=== PATIENT | male | born 1950 | race Caucasian/White ===

== ENCOUNTER 2019-08-20 06:51 | Day surgery (SDC) | payer MEDICARE, OTHER, SELFPAY ==
[2019-08-20] MEDS: PROPARACAINE 0.5% OPHTH SOL 2 DROPS EYE-OP (07:51)
[2019-08-20] MEDS: CATARACT EYE COMPOUND (10 DROPS/SYRINGE) 3 DROPS EYE-OP (07:53)
[2019-08-20 07:54] VITALS: BP 157/74; PULSE 60; RESP 16; TEMP 36.3; O2SAT 97
[2019-08-20 08:03] VITALS: BMI 26.6
--- NOTE | 2019-08-20 08:41 | PM.PREOP ---
Pre-operative Note Interval Note History & Physical reviewed/Exam performed by Physician: No Changes to H&P: No
--- NOTE | 2019-08-20 08:41 | PM.OP.1 ---
Operative Date/Time/Diagnoses Pre-op diagnosis: Nuclear cataract right eye Procedure & Clinicians Procedure: Cataract Surgery Same procedure as scheduled: Yes Surgeon: Sang Bose Anesthesia Type: MAC +/- and Sedation Operative Notes Procedure in detail: Patient brought to the operating suite. Tetracaine drops placed in the right eye. Patient was prepped and draped in sterile manner. Wire lid speculum was placed in the eye. Betadine drops were placed on the eye. This was irrigated. Lidocaine jelly was placed on the eye. A paracentesis port was created with a side-port blade. 0.1 mL 1% preservative free lidocaine was injected into the anterior chamber. The anterior chamber was deepened with viscoelastic. 2.6 mm keratome was used to create a temporal clear corneal incision. Cystotome and Utrata forceps were used to create continuous tear capsulorrhexis. Balanced salt solution was used to hydro dissect the nucleus. The phacoemulsification handpiece was inserted and the nucleus was removed using the stop and chop technique. The irrigation aspiration handpiece was inserted and the remaining cortex was removed. Anterior chamber was deepened with viscoelastic. An Lane ZCB00 intraocular lens with a power of 17.5 was injected into the capsular bag. Irrigation aspiration handpiece was inserted and the remaining viscoelastic was removed. Incision was hydrated with balanced salt solution and found to be leak free with pressure with Weck-Camila sponges. 0.1 mL Vigamox injected anterior chamber. 0.3 mL Kenalog 10 mg was injected subconjunctivally. Lid speculum was removed. The patient left the operating room in excellent condition. Complications: none Post-operative Condition: stable Disposition: same day surgery
[2019-08-20] MEDS: CHONDROIDTIN/SOD HYALURONATE 1.05 ML SYRINGE INTRAOCULA (09:01)
[2019-08-20] MEDS: LIDOCAINE JELLY 2% 5 ML 1 APPLIC TOP (09:01)
[2019-08-20] MEDS: MOXIFLOXACIN INJ 5 MG/ML VIAL EYE-OP (09:02)
[2019-08-20] MEDS: PHENYLEPHRINE/LIDOCAINE VIAL (OR) 0.2 ML EYE-OP (09:02)
[2019-08-20] MEDS: TETRACAINE 0.5% OPHTH DROPS 4 ML 2 DROPS EYE-OP (09:02)
[2019-08-20] MEDS: BALANCED SALT IRRIG SOLN NO.2 500 ML, EPINEPHrine 1 MG IRR (09:03)
[2019-08-20] MEDS: TRIAMCINOLONE 50 MG/5 ML VIAL INJ (09:03)
[2019-08-20 09:15] VITALS: BP 136/74; PULSE 68; RESP 15; TEMP 36.7; O2SAT 97
== END 2019-08-20 09:23 | disposition home or self-care (01) ==
LOC: OR 06:56
PROVIDERS: PCP Internal Medicine; Visit Provider Ophthalmology
PROC: (CPT 66984; principal; 2019-08-20 08:45)
DX: H25.11 Age-related nuclear cataract, right eye (principal); I10 Essential (primary) hypertension; E11.9 Type 2 diabetes mellitus without complications; Z79.84 Long term (current) use of oral hypoglycemic drugs
CPT/HCPCS: 66984; J0171; J2250; J3010; J3301

== ENCOUNTER 2019-09-03 06:50 | Day surgery (SDC) | payer MEDICARE, OTHER, SELFPAY ==
[2019-09-03 07:36] VITALS: BP 145/77; PULSE 61; RESP 16; TEMP 36.6; O2SAT 97; BMI 26.7
[2019-09-03] MEDS: PROPARACAINE 0.5% OPHTH SOL 2 DROPS EYE-OP (07:50)
[2019-09-03] MEDS: CATARACT EYE COMPOUND (10 DROPS/SYRINGE) 3 DROPS EYE-OP (07:52)
--- NOTE | 2019-09-03 08:11 | PM.PREOP ---
Pre-operative Note Interval Note History & Physical reviewed/Exam performed by Physician: No Changes to H&P: No
--- NOTE | 2019-09-03 08:12 | PM.OP.1 ---
Operative Date/Time/Diagnoses Pre-op diagnosis: Nuclear Cataract Left eye Post-op diagnosis: same Procedure & Clinicians Surgeon: Sang Bose Anesthesia Type: MAC +/- and Sedation Operative Notes Procedure in detail: Patient brought to the operating suite. Tetracaine drops placed in the left eye. Patient was prepped and draped in sterile manner. Wire lid speculum was placed in the eye. Betadine drops were placed on the eye. This was irrigated. Lidocaine jelly was placed on the eye. A paracentesis port was created with a side-port blade. 0.1 mL 1% preservative free lidocaine was injected into the anterior chamber. The anterior chamber was deepened with viscoelastic. 2.6 mm keratome was used to create a temporal clear corneal incision. Cystotome and Utrata forceps were used to create continuous tear capsulorrhexis. Balanced salt solution was used to hydro dissect the nucleus. The phacoemulsification handpiece was inserted and the nucleus was removed using the stop and chop technique. The irrigation aspiration handpiece was inserted and the remaining cortex was removed. Anterior chamber was deepened with viscoelastic. An Lane ZCB00 intraocular lens with a power of 18.5 was injected into the capsular bag. Irrigation aspiration handpiece was inserted and the remaining viscoelastic was removed. Incision was hydrated with balanced salt solution and found to be leak free with pressure with Weck-Camila sponges. 0.1 mL Vigamox injected anterior chamber. 0.3 mL Kenalog 10 mg was injected subconjunctivally. Lid speculum was removed. The patient left the operating room in excellent condition. Complications: none Post-operative Condition: stable Disposition: same day surgery
[2019-09-03] MEDS: PHENYLEPHRINE/LIDOCAINE VIAL (OR) 0.2 ML EYE-OP (08:23)
[2019-09-03] MEDS: MOXIFLOXACIN INJ 5 MG/ML VIAL EYE-OP (08:23)
[2019-09-03] MEDS: TETRACAINE 0.5% OPHTH DROPS 4 ML 2 DROPS EYE-OP (08:24)
[2019-09-03] MEDS: TRIAMCINOLONE 50 MG/5 ML VIAL INJ (08:24)
[2019-09-03] MEDS: CHONDROIDTIN/SOD HYALURONATE 1.05 ML SYRINGE INTRAOCULA (08:24)
[2019-09-03] MEDS: LIDOCAINE JELLY 2% 5 ML 1 APPLIC TOP (08:25)
[2019-09-03] MEDS: BALANCED SALT IRRIG SOLN NO.2 500 ML, EPINEPHrine 1 MG IRR (08:25)
[2019-09-03 08:40] VITALS: BP 133/80; PULSE 63; RESP 15; TEMP 36.2; O2SAT 96
== END 2019-09-03 09:08 | disposition home or self-care (01) ==
LOC: OR 06:53
PROVIDERS: PCP Internal Medicine; Visit Provider Ophthalmology
PROC: (CPT 66984; principal; 2019-09-03 08:15)
DX: H25.12 Age-related nuclear cataract, left eye (principal); I10 Essential (primary) hypertension; E11.9 Type 2 diabetes mellitus without complications; Z79.84 Long term (current) use of oral hypoglycemic drugs
CPT/HCPCS: 66984; J0171; J2250; J3010; J3301

== ENCOUNTER → 2019-12-03 12:39 | Outpatient (CLI) | payer MEDICARE, OTHER, SELFPAY ==
--- NOTE | 2019-12-03 | DI.MRI.S_ITS ---
PROCEDURE: MR LUMBAR SPINE WO CON INDICATIONS: Low back pain TECHNIQUE: Noncontrast sagittal T1 spin echo and T2 fast echo, sagittal STIR, axial T1 and T2 fast spin echo through the lumbar spine. In cases with scoliosis, additional coronal T2 fast spin echo may be performed. COMPARISON: None. FINDINGS: Image quality: Excellent. Alignment and Curvature: There is grade I L5-S1 anterolisthesis secondary to bilateral L5 pars interarticularis defects. Bone Marrow: Reactive endplate changes noted adjacent the L5-S1 discs. No acute vertebral body compression fractures. Spinal Cord: Conus medullaris terminates at the L1 level. Visualized cord demonstrates normal signal and size. Paraspinous Soft Tissues: No paravertebral masses. L1-L2: Normal appearance. L2-L3: Normal appearance. L3-L4: Normal appearance. L4-L5: Normal appearance. L5-S1: Loss of disc signal and height. Mild, diffuse disc bulge. Mild bilateral facet hypertrophy. No central stenosis. Severe bilateral neural foraminal narrowing with compression of the exiting bilateral L5 nerve roots. IMPRESSION: 1. Grade I L5-S1 isthmic spondylolisthesis. 2. L5-S1 degenerative disc disease. 3. L5-S1 facet arthropathy. 4. No central stenosis. 5. Bilateral L5-S1 severe neural foraminal narrowing with marked compression of the exiting L5 nerve roots. Dictated by: Gretchen Beckham MD, PhD on 12/03/2019 at 14:46 Approved by: Gretchen Beckham MD, PhD on 12/03/2019 at 15:00
== END ==
PROVIDERS: PCP Internal Medicine; Referring Provider Physical Medicine & Rehabilitation; Visit Provider Physical Medicine & Rehabilitation
DX: M54.5 Low back pain (principal); M47.817 Spondylosis without myelopathy or radiculopathy, lumbosacral region; M43.17 Spondylolisthesis, lumbosacral region; M51.37 Other intervertebral disc degeneration, lumbosacral region; M48.07 Spinal stenosis, lumbosacral region
CPT/HCPCS: 72148

== ENCOUNTER → 2020-05-24 11:35 | Outpatient (CLI) | payer MEDICARE, OTHER, SELFPAY ==
[2020-05-25 22:04] LABS: COVID19 Sendout Not Detected (Not Detect)
== END ==
PROVIDERS: PCP Internal Medicine; Visit Provider Physician Assistant
DX: Z11.59 Encounter for screening for other viral diseases (principal)
CPT/HCPCS: 87635

== ENCOUNTER 2020-05-27 11:09 | Day surgery (SDC) | payer MEDICARE, OTHER, SELFPAY ==
[2020-05-18 14:00] VITALS: BMI 28.0
[2020-05-27] VITALS (12 sets, daily range): BP systolic 134–153; BP diastolic 72–80; PULSE 62–80; RESP 10–18; TEMP 35.6–36.9; O2SAT 95–100; BMI 24.5
--- NOTE | 2020-05-27 | DI.RAD.S_ITS ---
PROCEDURE: XR LUMBAR SPINE 2-3V INDICATIONS: L5-S1 TLIF TECHNIQUE: AP and lateral operative views of the lumbar spine were acquired. COMPARISON: None. FINDINGS: AP and lateral fluoroscopic images demonstrate posterolateral berna and pedicle screw fixation and interbody prosthesis at L5-S1. IMPRESSION: Operative imaging utilized during lumbar fusion surgery. Dictated by: Nolan Otoole M.D. on 05/27/2020 at 15:21 Approved by: Nolan Otoole M.D. on 05/27/2020 at 15:23
[2020-05-27] MEDS: LACTATED RINGERS 1,000 ML 42 ML IV ×2 (11:52→13:43)
--- NOTE | 2020-05-27 11:57 | PM.PREOP ---
Pre-operative Note COVID-19 COVID-19 status: Negative Result date/Date tested (Pos, Neg/Pending): 05/25/20 Interval Note History & Physical reviewed/Exam performed by Physician: Yes Changes to H&P: No
[2020-05-27] MEDS: CLINDAMYCIN 900 MG/50 ML PIGGYBACK 50 MG IV ×2 (12:27→21:35)
--- NOTE | 2020-05-27 13:05 | SUR.OPER ---
Prone on spine table, head in foam head support, padded chest and pelvic supports, gel pad at knees, lower legs supported by pillows; nipples, genitalia and toes free of pressure, arms secured on foam padded arm boards at <90 degrees abduction. Tape over blanket at thigh secured to table.
[2020-05-27] MEDS: BUPIVACAINE 0.25% W/ EPI 30 ML VIAL INJ (13:31)
[2020-05-27] MEDS: BUPIVACAINE LIPOSOME 266 MG/20 ML VIAL INJ (13:32)
--- NOTE | 2020-05-27 14:50 | PM.OP.1 ---
Operative Date/Time/Diagnoses Date of procedure: 05/27/20 Time of procedure: 12:50 Pre-op diagnosis: 1. L5-S1 spondylolisthesis 2. L5-S1 spinal stenosis with radiculopathy Post-op diagnosis: same Procedure & Clinicians Procedure: 1. L5-S1 Postero-lateral and posterior interbody fusion 2. L5-S1 interbody cage placement. 3. L5-S1 decompressive laminectomy with bilateral facetecomies 4. L5-S1 Posterior non-segmental instrumentation 5. [place] of bone marrow from iliac crest 6. Utilization of microsurgical technique and operating microscope Same procedure as scheduled: Yes Indications: Patient has been having chronic back pain and worsening lumbar radiculopathy. Patient failed multiple conservative management with worsening pain weakness and numbness in her lower extremity. Patient has been having difficulty performing activity of daily living. After discussing risks benefits of treatment options, patient elected proceed with surgery. Surgeon: Paul Gonzalez [facility] House Supervisor: Tatiana Nava Click Yes if Unassisted: No Anesthesia Type: General Operative Notes Closure Type: primary Specimen(s): none sent Prosthetic devices, grafts, tissues, transplants, or devices: Globus revolve screws, Expandibe cage Estimated Blood Loss (mL): 50 Procedure in detail: Patient was seen in the preoperative area. Risks and benefits of the surgery was discussed with the patient. Informed consent was obtained from the patient and placed in the chart. Surgical site was marked. Patient was taken to the operative room. General anesthesia was administered. Prophylactic antibiotic was given to the patient less than 30 min before the incision was made. Patient was placed into a prone position on the Lan table. Patient's back was then prepped and draped in the sterile fashion. Time-out was performed at this time. Using AP and lateral C-arm imaging the interval between L5-S1 was identified and marked on patient's back. A 2 inch incision 2 in from midline was made on the left side first. The fascia was incised in line with skin incision. Globus MARS retractors was placed inside the incision and docked onto the L5 lamina. Using microsurgical technique and operating microscope, a L5 laminectomy and L5-S1 facetectomy was performed using a [place] rongeur. Patient was found have severe central and neural foramen stenosis which was fully decompressed after the laminectomy and facetectomy was completed. The disc space at L5-S1 was identified. And a total diskectomy was performed at L5-S1 level. The endplates were decorticated using a rasp and shaver. The total diskectomy and decortication was performed at L5-S1 level in order to to accomplish a L5-S1 fusion. The local bone from the laminectomy and facetectomy was saved for local bone grafting. After the total diskectomy and decortication was completed, Trifecta bone graft material was combined with local bone that was harvested earlier. At this time, a separate skin is incision was made over the iliac crest. A Jamshidi needle was inserted into the iliac crest through a separate skin incision. 5 cc of bone marrow aspiration was obtained through the separate skin incision using a Jamshidi needle from the iliac crest. The bone marrow aspiration was combined with local bone and the Trifecta bone grafting material. The bone grafting material was placed into the L5-S1 interbody space along with a expandable cage. The cage was expanded to its maximum height using the torque limiting screwdriver. At this time a mirror image incision was made on the right side. The fascia was incised in line with the skin incision. Globus MARS retractor was inserted and docked onto the L5-S1 posterolateral gutter. Using the power drill, posterior-lateral decortication was performed at L5-S1 level until bleeding cortical bone was identified. The remaining bone grafting material was placed into the L5-S1 posterior lateral gutter he order to accomplish posterolateral fusion at the L5-S1 level. Using the double C-arm technique, pedicle screws were placed into the L5-S1 pedicles bilaterally. This was done by placing the Jamshidi needle into the pedicles, then placing the guidewires over the Jamshidi needle, and finally placing the cannulated screws over the guidewires bilaterally. After the pedicle screws were placed, 2 titanium rods was locked into the heads of the pedicle screws using locking caps and torque limiting screwdriver. Threaded the reducers was used to used to reduce patient's spondylolisthesis at L5-S1 level. Anatomic reduction was accomplished using the supervisor powder and primer canning and the hardware placed. After all the hardware was placed, and confirmed with AP and lateral C-arm imaging, the wound was then irrigated with sterile normal saline and packed with Ray-Wes gauze for 3 min to accomplish hemostasis. After the gauze was removed the deep fascia was closed with #1 Vicryl suture. The subcutaneous layer was closed with 2-0 Vicryl. The skin was closed with skin lizeth. Patient tolerated the procedure well. There were no complications. Complications: none Post-operative Condition: stable Disposition: PACU Plan for aftercare: Admit to inpatient hospital
[2020-05-27] MEDS: SODIUM CHLORIDE 0.9% 1,000 ML 100 ML IV (16:06)
--- NOTE | 2020-05-27 17:23 | PC.NURSE ---
Patient arrived to floor at 1535, A&O x4, patient denies any pain at this time, no numbness or tingling in upper or lower ext. Patient's fluids were changed per orders and IV site was re-inforced with a new tegaderm and coban. Pt is resting peacfully in bed, call light w/in reach, bed in low pos.
[2020-05-27] MEDS: OXYCODONE IR 5 MG TABLET 10 MG PO (17:54)
--- NOTE | 2020-05-27 18:56 | PC.NURSE ---
1800 - I was called to Rm [id number], to speak with the patient's , who was very upset that the surgeon did not speak with her following the patient's surgery, and that no hospital staff notified her of the patient's arrive to his room at 1535. The surgeon was contacted by phone and the call was transferred to the the patient's room. Following this phone conversation, the patient and his reported that all of their questions and concerns had been addressed.
[2020-05-27] MEDS: ATORVASTATIN 20 MG TABLET 40 MG PO (21:35)
[2020-05-27] MEDS: SENNOSIDES 8.6 MG TABLET 17.2 MG PO (21:35)
[2020-05-27] MEDS: DOCUSATE 100 MG CAPSULE PO (21:35)
[2020-05-27] MEDS: METFORMIN HCL 500 MG TABLET 1000 MG PO (21:35)
[2020-05-27] MEDS: glipiZIDE 5 MG TABLET 10 MG PO (21:36)
[2020-05-27] MEDS: ENALAPRIL 20 MG TABLET PO (22:33)
[2020-05-27] MEDS: PROPRANOLOL ER 60 MG CAPSULE 120 MG PO (22:59)
[2020-05-28] VITALS: BP 126/74; BP 150/79; PULSE 90; RESP 16; TEMP 38.1; O2SAT 97
[2020-05-28] MEDS: ACETAMINOPHEN 325 MG TABLET 650 MG PO ×2 (00:09→09:08)
[2020-05-28] MEDS: OXYCODONE IR 5 MG TABLET 10 MG PO ×2 (00:09→09:07)
[2020-05-28 00:30] VITALS: TEMP 37.4
[2020-05-28 01:15] VITALS: BP 126/74; PULSE 90; RESP 16; TEMP 37.4; O2SAT 90
[2020-05-28] MEDS: CLINDAMYCIN 900 MG/50 ML PIGGYBACK 50 MG IV (05:31)
[2020-05-28 05:48] VITALS: BP 139/65; PULSE 84; RESP 16; TEMP 36.7; O2SAT 98
[2020-05-28 07:45] VITALS: BP 136/69; PULSE 86; RESP 16; TEMP 37.8; O2SAT 96
--- NOTE | 2020-05-28 08:52 | PM.PN.1 ---
Exam Vital Signs (past 8 hours): - 05/28/20 01:15 05/28/20 05:48 Temperature 99.3 F 98.0 F Pulse Rate 90 84 Respiratory Rate 16 16 Blood Pressure 126/74 139/65 Pulse Oximetry 90 L 98 Oxygen Delivery Method Room Air Oxygen Flow Rate 1 Assessment & Plan Assessment & Plan narrative: POD#1 s/p L5-S1 TLIF. Doing well. AMbulated to bathroom multiple times. Neurovasculary intact. Will d/c home today after clear PT/OT.
[2020-05-28] MEDS: METFORMIN HCL 500 MG TABLET 1000 MG PO (09:07)
[2020-05-28] MEDS: AMLODIPINE 5 MG TABLET PO (09:07)
[2020-05-28] MEDS: glipiZIDE 5 MG TABLET PO (09:07)
[2020-05-28] MEDS: DOCUSATE 100 MG CAPSULE PO (09:07)
[2020-05-28] MEDS: valACYclovir 500 MG TABLET PO (09:08)
[2020-05-28] MEDS: PROPRANOLOL ER 60 MG CAPSULE 120 MG PO (09:09)
--- NOTE | 2020-05-28 10:38 | PT.IIE ---
Current Diagnoses Spondylolisthesis, lumbosacral region (05/27/20) Spinal stenosis, lumbar region without neurogenic claudication (05/27/20) Surgery Performed Operation Date: 05/27/20 12:45 Actual Procedures p L5-S1 TRANSLAMINAR INTERBODY FUSION WITH POSTERIOR INSTRUMENTATION - Paul Gonzalez MD Surgical History (Last Updated 05/18/20 @ 14:20 by Isabela Bailey RN) History of straightening of nasal septum (Acute) History of vasectomy (Acute) Medical History (Last Updated 05/18/20 @ 14:20 by Isabela Bailey RN) Diabetes (Acute) Dupuytren's disease (Acute) Heartburn (Acute) HLD (hyperlipidemia) (Acute) Hypertension (Acute) Kidney stone (Acute) Melanoma (Acute 02/2019) Sinus congestion (Acute) Tremor (Acute) Physical Therapy Inpatient Evaluation/Re-Eval M1 PT/OT-IP Prior Functional Status Start: 05/28/20 14:05 Freq: NEEDED Status: Active Protocol: Document 05/28/20 11:33 [facility] (Rec: 05/28/20 14:18 [facility] [id number]) Medical Review Prior Functional Status Medical History Reviewed Yes Communication Independent. Activities of Daily Living and IADL's Pt states was independent to do all his ADl and IADl needs on his own. Drives and took the dog for walks. Social History Household Members spouse Living Arrangements RV Number of Floors (Floors) One Floor Number of Stairs To Enter/Railing? 5 steps with bilateral rails. Home Environment Standard Height Toilet,Walk in Shower,Built-In Shower Seat Home Equipment Hand Held Shower,Long Handled Sponge M1 PT/OT-IP Prior Functional Status Start: 05/28/20 14:58 Freq: NEEDED Status: Active Protocol: Document 05/28/20 10:38 [facility] (Rec: 05/28/20 15:11 [facility] [email or web address]) Medical Review Prior Functional Status Medical History Reviewed Yes Communication able to make needs known Mobility and Gait pt stated that he is independent with all mobilities and ambulation without AD Activities of Daily Living and IADL's per OT's note: Pt states was independent to do all his ADl and IADl needs on his own. Drives and took the dog for walks. Social History Household Members spouse Living Arrangements Mobile home Number of Floors (Floors) One Floor Number of Stairs To Enter/Railing? 5 steps with bilateral rails. Home Environment Standard Height Toilet,Walk in Shower,Built-In Shower Seat Home Equipment Hand Held Shower,Long Handled Sponge,Grab Bars In Shower Employment Status Retired M2 PT-IP Current Condition Start: 05/28/20 14:58 Freq: NEEDED Status: Active Protocol: Document 05/28/20 10:38 [facility] (Rec: 05/28/20 15:11 [facility] [email or web address]) Physical Therapy Current Condition Current Condition Evaluation Date 05/28/20 Treatment Diagnosis s/p L5S1 posterior fusion/lami ; difficulty in walking Onset Date 05/27/20 Precautions Lumbar Precautions Log Roll,No Twisting,Limit Bending,Lifting Restriction of 10 lbs,Gait Belt above Incisional Area M3 PT-IP Subjective Start: 05/28/20 14:58 Freq: NEEDED Status: Active Protocol: Document 05/28/20 10:38 [facility] (Rec: 05/28/20 15:11 AB [email or web address]) Subjective Physical Therapy Visit Type Type Initial Evaluation Visit Start Time 10:38 Visit Stop Time 11:40 Total Visit Minutes 62 Number of TRAVEL CONSULTANT Visits 0 Physical Therapy Visit Comments Patient Comments agreed to do PT Therapy Pain Assessment Pain When Pain Assessed At Rest Pain Present Pain Present Pain Reported Location lumbar back Intensity 2 Scale Used Numeric (0 - 10) Pain Management Techniques Modification of Treatment,Re- positioning,Timing of Activity with Medications M4 PT-IP Mobility and Gait Start: 05/28/20 14:58 Freq: NEEDED Status: Active Protocol: Document 05/28/20 10:38 [facility] (Rec: 05/28/20 15:11 AB [email or web address]) PT-Bed Mobility Assessment Rolling Type of Rolling Log Rolling Level of Assist Standby Assistance Supine to Sit Supine to Sit Standby Assistance Sit to Supine Sit to Supine Standby Assistance Scooting Scooting to Edge of Bed Independent PT-Transfer Assessment Sit to and From Stand Sit to and from Stand Standby Assistance,1 Person Assistance,Use of Upper Extremities Equipment Transfer Assistive Device Gait Belt,Straight Cane,Front Wheeled Walker Orthotic/Prosthetic Devices or Brace: No Transfers Transfer Destination Chair Transfer Technique ambulated Transfer Ability Level of Assist Standby Assistance,1 Person Assistance,Use of Upper Extremities Comments Mobility Comments reviewed back precautions and log roll supine <>sit. completed supine <> sit SBA x 2 reps with cues initially and able to complete without cues on 2nd attempt. completed sit to stand x 3 reps with initial CGA and cues and able to complete SBA without cues afterwards. ambulated using FWW SBA to CGA. increase R trunk leaning during ambulation. instructed pt to correct and was able to ambulate steadier afterwards. assessed ambulation using SPC . pt instructed on how to use SPC and completed SBA to CGA. requires inital cues for safety. pt prefers using a SPC. stated that they will get one for home use. ambulated without AD CGA and cues. pt with antalgic gait and informed pt regarding safety. stated that his house is small and has things he hold on to at home. recommending pt to use AD for long distance ambulation. pt agreed. pt ambulated in hallway using SPC with initial LOB towards the R but able to recover. cued pt again on correcting and was able to ambulate more ~ 200 ft without LOB and steadier gait using SPC afterwards. pt completed up/down steps using SPC and 1 rail SBA. pt ambulated back to his room. agreed to sit up on chair. informed OT that pt is waiting to be d/c and will be doing dressing. left pt sitting. call light and table within reach. pt has no other concerns. Gait Assessment Gait Gait Assistance Required: Standby Assistance,Contact Guard Assist Distance (Feet) 300 Able to Maintain Weight Bearing Status Yes During Gait Assistive Devices Assistive Device None,Gait Belt,Straight Cane, Front Wheeled Walker Orthotic/Prosthetic Devices or Brace: No Gait Deviations General Gait Pattern Antalgic Factors Limiting Gait Function Factors Limiting Gait Function Decreased Activity Tolerance, Decreased Strength,Pain,Poor Balance Comments Gait Comments pls refer to mobility section for details Stair Climbing Assessment Evaluation Level of Assist On Stairs Standby Assistance Devices Stair Climbing Assistive Devices Straight Cane,Left Railing Technique/Endurance Stair Climbing Direction Ascend and Descend Stair Climbing Technique Step to Step Number of Steps Climbed 3 Query Text: Stair Climbing Set # Repetitions (reps) 2 PT-Balance Assessment Sitting Balance and Reactions Static Sitting Balance Ability Normal Dynamic Sitting Balance Ability Normal Standing Balance and Reactions Static Standing Balance Ability Good Dynamic Standing Balance Ability Fair Device Used without AD M5 PT-IP Objective Assessments Start: 05/28/20 14:58 Freq: NEEDED Status: Active Protocol: Document 05/28/20 10:38 [facility] (Rec: 05/28/20 15:11 AB [email or web address]) Orientation Orientation/Cognition Level of Alertness Alert Orientation Name,Age,Birthday,Month,Date, Year,Day of Week,Place, Situation Language Function Ability No Deficits Noted Safety Awareness Understands Safety Issues Memory Description No Deficits Noted Gross Range of Motion Lower Extremity ROM Assessment Within Functional Limits Strength Lower Extremity Strength Assessment Bilaterally Impaired Hip 4-/5 Knee 4-/5 Coordination Assessment Gross Coordination Gross Coordination WNL Sensation Assessment Sensation Gross Sensation WNL Muscle Tone Muscle Tone WNL Yes M6 PT-IP Treatment Start: 05/28/20 14:58 Freq: NEEDED Status: Active Protocol: Document 05/28/20 10:38 [facility] (Rec: 05/28/20 15:11 AB [email or web address]) Physical Therapy Treatment Education Education Provided Precautions,Post-Op Packet, Safety M7 PT-IP Assessment and Plan Start: 05/28/20 14:58 Freq: NEEDED Status: Active Protocol: Document 05/28/20 10:38 [facility] (Rec: 05/28/20 15:11 AB [email or web address]) PT Summary Assessment and Plan Potential Rehabilitation Potential Good Status of Condition at Evaluation Stable Summary Impairments Pain,ROM,Strength,Balance,Bed Mobility,Transfers,Gait, Activity Tolerance Progress Towards Goals Safe For Discharge Assessment Summary pt requiring SBA to CGA with mobility. recommending use of SPC and pt stated that he will get one. pt plans to go home and spouse to assist him. Goals Bed Mobility Goal Independent Transfer Goal Independent,Cane Gait Goal Independent,Cane Gait Distance 300 Other Goals improve ambulation without AD 300 ft SBA up/down 5 steps using 1 rail/ SPC SBA Days to Meet Goals 3 Frequency of Treatment Frequency Of Treatment Twice a Day Treatment Plan Physical Therapy Treatment Plan Bed Mobility Training,Transfer Training,Gait Training, Therapeutic Exercise,Balance Retraining,Post Op Education, Discharge Planning,Hot or Cold Pack,Neuromuscular Re-ed, Coordination Retraining,Manual Therapy Recommendations To Nursing Amount of Assist Needed Standby Assistance Discharge Recommendations PT Discharge Recommendations Home with Assistance Transportation Needs at Discharge Private Vehicle
--- NOTE | 2020-05-28 12:06 | OT.IP.EVAL ---
Current Diagnoses Spondylolisthesis, lumbosacral region (05/27/20) Spinal stenosis, lumbar region without neurogenic claudication (05/27/20) Surgery Performed Operation Date: 05/27/20 12:45 Actual Procedures p L5-S1 TRANSLAMINAR INTERBODY FUSION WITH POSTERIOR INSTRUMENTATION - Paul Gonzalez MD Past Medical History (Last Updated 05/18/20 @ 14:20 by Isabela Bailey, RN) Diabetes (Acute) Dupuytren's disease (Acute) Heartburn (Acute) HLD (hyperlipidemia) (Acute) Hypertension (Acute) Kidney stone (Acute) Melanoma (Acute 02/2019) Sinus congestion (Acute) Tremor (Acute) Surgical History (Last Updated 05/18/20 @ 14:20 by Isabela Bailey RN) History of straightening of nasal septum (Acute) History of vasectomy (Acute) Occupational Therapy Inpatient Evaluation/Re-Eval M1 PT/OT-IP Prior Functional Status Start: 05/28/20 14:05 Freq: NEEDED Status: Active Protocol: Document 05/28/20 11:33 [facility] (Rec: 05/28/20 14:18 [facility] [id number]) Medical Review Prior Functional Status Medical History Reviewed Yes Communication Independent. Activities of Daily Living and IADL's Pt states was independent to do all his ADl and IADl needs on his own. Drives and took the dog for walks. Social History Household Members spouse Living Arrangements RV Number of Floors (Floors) One Floor Number of Stairs To Enter/Railing? 5 steps with bilateral rails. Home Environment Standard Height Toilet,Walk in Shower,Built-In Shower Seat Home Equipment Hand Held Shower,Long Handled Sponge M2 OT-IP Current Condition Start: 05/28/20 14:05 Freq: Status: Active Protocol: Document 05/28/20 11:33 [facility] (Rec: 05/28/20 14:18 [facility] [id number]) Occupational Therapy Current Condition Current Condition Evaluation Date 05/28/20 Treatment Diagnosis Spinal stenosis with radiculopathy , s/p L5-S1 TLIF Post Operative Precautions Lumbar Precautions Log Roll,No Twisting,Limit Bending,Lifting Restriction of 10 lbs,Gait Belt above Incisional Area M3 OT- IP Subjective and Pain Start: 05/28/20 14:05 Freq: Status: Active Protocol: Document 05/28/20 11:33 [facility] (Rec: 05/28/20 14:18 [facility] [id number]) OT- Subjective Occupational Therapy Visit Type Type Initial Evaluation Visit Start Time 11:33 Visit Stop Time 12:06 Total Visit Minutes 33 Occupational Therapy Visit Comments Patient Comments Pt agreed to do OT eval and present. Patient/Caregiver Goals To go home today. OT Pain Assessment Pain When Pain Assessed At Rest Pain Present Pain Present Denied Pain M4 OT- IP ADL's Start: 05/28/20 14:05 Freq: Status: Active Protocol: Document 05/28/20 11:33 [facility] (Rec: 05/28/20 14:18 [facility] [id number]) OT ADL-Grooming Comments OT Grooming Comments Educated to spit into a cup to best follow back precautions. OT ADL-Dressing General Eval Upper Body Dressing Ability Independent Lower Body Dressing Ability Maximum Assistance Areas Needing Assistance Pants/Shorts,Socks,Shoes Assistive Devices Dressing Assistive Devices Long Handled Shoe Horn,Anode Worker ,Sock Aid Comments OT Dressing Comments Educated pt on LB dressing equipment so now able to do his dressing needs. Sock aid, marine engine driver, long handled shoe horn and sponge issued. OT ADL-Toileting General Evaluation Toileting Ability Independent Comments OT Toileting Comments Pt able to reach appropriate to wipe and follow his back precautions. OT ADL-Bathing Comments OT Bathing Comments Pt not wanting to shower at this time, in addition per nursing no orders given to change the dressing at this time. M5 OT- IP IADL's Start: 05/28/20 14:05 Freq: Status: Active Protocol: Document 05/28/20 11:33 [facility] (Rec: 05/28/20 14:18 [facility] [id number]) OT-Instrumental Activities of Daily Living Home Safety Awareness Awareness of Need for Assistance at Home Good Awareness Ability to Problem Solve Emergency Able to Problem Solve Situations Money Management Money Management Comments Educated to provide supervision or assist as pt may at times be groggy from pain medications. Meal Preparation Meal Preparation Comments Educated to provide supervision or assist as pt may at times be groggy from pain medications. Blood Bank Order Control Clerk Blood Bank Order Control Clerk Caregiver Provides Assist M6 OT- IP Functional Cognition Start: 05/28/20 14:05 Freq: Status: Active Protocol: Document 05/28/20 11:33 [facility] (Rec: 05/28/20 14:18 [facility] [id number]) Cognitive Factors Limiting Selfcare Function Cognitive Ability Level of Alertness Alert Patient Orientation Name,Age,Birthday,Month,Date, Year,Day of Week,Place, Situation Attention Span Ability Capable of Focused Attention, Capable of Sustained Attention Ability to Follow Commands Able to Follow Multi-Step Commands Memory Description No Deficits Noted Safety Awareness No Deficits Noted Problem Solving Ability No deficits Noted Cognitive Comments Cognitive Assessment Comments No deficits noted at this time . OT- Vision and Hearing OT- Hearing Assessment OT- Hearing Assessment WFL M7 OT- IP Mobility and Balance Start: 05/28/20 14:05 Freq: Status: Active Protocol: Document 05/28/20 11:33 [facility] (Rec: 05/28/20 14:18 [facility] [id number]) OT-Transfer Assessment Sit to and From Stand Sit to and from Stand Standby Assistance Transfers Transfer Ability Standby Assistance,1 Person Assistance Technique Transfer Destination Chair,Toilet Transfer Technique Stand Step Pivot Devices Transfer Assistive Devices Gait Belt,Straight Cane Comments Mobility Comments SBA with SPC. OT- Gait Assessment Assistive Devices Assistive Device Gait Belt,Straight Cane OT- Balance Assessment Sitting Balance and Reactions Static Sitting Balance Ability Normal Dynamic Sitting Balance Ability Good Standing Balance and Reactions Static Standing Balance Ability Good M8 OT- IP Objective Assessments Start: 05/28/20 14:05 Freq: Status: Active Protocol: Document 05/28/20 11:33 [facility] (Rec: 05/28/20 14:18 [facility] [id number]) OT Strength Upper Extremity Strength Assessment Within Functional Limits M9 OT- IP Assessment and Plan Start: 05/28/20 14:05 Freq: Status: Active Protocol: Document 05/28/20 11:33 [facility] (Rec: 05/28/20 14:18 [facility] [id number]) OT Summary Assessment and Plan Potential Rehabilitation Potential Excellent Analytic Complexity at Evaluation Low Summary OT Impairments Pain,Functional Mobility, Bathing,Activity Tolerance Progress Towards Goals Progressing Toward Goals Assessment Summary Pt low complexity s/p L5-S1 TLIF doing well and able to go over and issue LB dressing equipment with pt and . Both have good understanding and safety for needs and considering to get shower chair versus built in seat at home. Pt issued LB dressing equipment. Goals Grooming Goal Independent Dressing Goal Independent Toileting Goal Independent Bathing Goal Independent Toilet Transfer Goal Independent Shower Transfer Goal Independent Days to Meet Goals 2 Frequency of Treatment Frequency Of Treatment Once a Day Treatment Plan OT Treatment Plan Patient/Family Education, Discharge Planning Discharge Recommendations OT Discharge Recommendations Home with Assistance Home Equipment Needs Shower chair Transportation Needs at Discharge Private Vehicle
--- NOTE | 2020-05-28 13:13 | PC.NURSE ---
Day shift: Pt left unit at approx 1310 in WC. Taken by HELIO Greene in WC. Pt's spouse will drive Pt home to on [facility]. Paperwork signed and all questions answered. Pt has MD scripts and all personal belongings. Bulky dressing CDI. Pt's spouse is retired RN.
--- NOTE | 2020-05-28 15:44 | CM.DANOTE ---
Discharge Planning/Care Management DCP: assessment: case received and discussed in Team Rounds this morning. Dr. Gonzalez had placed a d/c to home order as long as pt was cleared by PT/OT. Pt had not yet been seen by either therapy. Pt is a 70 year old male who admitted yesterday for a scheduled spinal surgery: Surgeon: Dr. Gonzalez Payer: Medicare and [employer]. Admission status: SDC: per UR RN Went to room later in the day to check in with pt and continue the assessment process. PT and OT had worked with pt, cleared him for d/c home and he had left in company of his daughter. CM Discharge Assessment Start: 05/28/20 15:42 Freq: Status: Active Protocol: Document 05/28/20 15:43 [facility] (Rec: 05/28/20 15:44 [facility] [id number]) Discharge Planning Assessment Advance Directives? No History Provided By Medical Record Prior Living Arrangements RV Household Members spouse Review Status In Process Pre-Anesthesia Assessment Start: 05/18/20 14:00 Freq: Status: Discharge Protocol: Document 05/18/20 14:00 [facility] (Rec: 05/18/20 14:44 [facility] [id number]) Pre-Anesthesia Assessment Preferred Name Balta Patient Information Reviewed Via Phone Assessment Assessment Completed With Patient Comment Labs/EKG done per pt, not available COVID screen @ 05/24/20 Primary Care Provider Janusz Shook Seen Specialist in Last 12 Months Yes Specialist Seen Library Monitor,Opthamologist/ Rubber Flap Cutter,Orthopedist Primary Language Wolof Preferred Language Wolof Disaster Response Director Required No Height 187.96 cm Weight 98.883 kg Body Mass Index (BMI) 28.0 Hearing Ability Normal Visual Assist Glasses Dentition Type Teeth, Natural Present,Teeth, Missing Hx Anesthesia Reactions No Hx Family Anesthesia Reaction No Hx Malignant Hyperthermia No Hx Blood Transfusions No Hx Blood Transfusion Reaction No Anesthesia Review Requested No alcohol intake current alcohol intake frequency a few times a week Smoking Status Former smoker how long ago did patient quit smoking Quit in his 20's Substance Use Type does not use Pain Present Pain Reported Musculoskeletal Symptoms Abnormal Gait,Back Pain, Difficulty Walking,Numbness, Radiating Pain into Limb, Tremors History of Falling (Recent or History of No ) Patient is completely paralyzed or No completely immobile Mental Status Oriented to own ability Is patient on oxygen? No Does patient have ARMSTRONG/SOB No Hx Sleep Apnea No CPAP/BIPAP use not prescribed Currently Taking a Beta Rony Yes: Propranolol for tremors Can You Climb a Flight of Stairs Without No SOB Hx Chest Pain No Hx SOB No Hx Syncope or Dizziness No Anti-Coagulant Therapy No Has a Eeo Officer No Cardiac Testing No Hx Pacemaker/ICD No Pacemaker Rep Required? No Cardiac Clearance Received Not Applicable Diet Type At Home Diabetic dysphagia No Gastrointestinal Symptoms Reflux Urinary Catheter Present No Hx Urinary Self Catheterization No Diabetes Yes Hx Drug Resistant Organism No Presence of External or Internal Medical Yes: Bilat eye lens Devices Have you had any close contact with No someone diagnosed with COVID-19? Marital Status Lives With spouse Prior Living Arrangements RV Support System Spouse Does the Patient Have Assistance After Yes Surgery Patient Discharge Plan Description Return Home Comment Pt advised overnight length of stay per surgeon Feels Safe in Current Environment Yes Been Physically Hurt or Threatened By a No Person in Current Environment Do you have thoughts of harming yourself None or others? Are you currently considering suicide? No Do you have a plan to hurt yourself or No Plan others? Do You Have Any Spiritual Beliefs That No May Affect Your HC Choices? Do You Have Any Cultural Practices That No May Affect Your HC Choices? Comment Moravian Who Can We Speak to About Patient's Care Family, friends Identifying Code for Release of Patient Declines to issue Information Health Care Proxy/Next of Kin Nena () Health Care Proxy Emergency Contact Name Nena () Emergency Contact Advance Directives? No Power of Processing Mgr No PAC Instructions Durable medical equipment, Medications to take/avoid, Nasal antibiotic,No ETOH/ petroleum product on skin DOS, NPO,Pre-op antibiotic,Sensory aids,Sturdy shoes/comfortable clothes,Do not bring valuables and remove jewelry
== END 2020-05-28 13:14 | disposition home or self-care (01) ==
LOC: AC 05-28 12:07 → OR 05-28 13:16
PROVIDERS: PCP Internal Medicine; Referring Provider Internal Medicine; Visit Provider Orthopaedic Surgery Orthopaedic Surgery of the Spine
PROC: (CPT 22633; principal; 2020-05-27 12:45)
DX: M43.17 Spondylolisthesis, lumbosacral region (principal); M48.061 Spinal stenosis, lumbar region without neurogenic claudication; Z11.59 Encounter for screening for other viral diseases; E11.9 Type 2 diabetes mellitus without complications; Z79.84 Long term (current) use of oral hypoglycemic drugs
CPT/HCPCS: 22633; 20939; 22840; 22853; 63047; 36592; 72100; 76000; 82962; 87635; 97116; 97161; 97165; 97535; C1776; C9290; J0330; J2250; J2405; J2704; J3010